=== PATIENT | female | born 1990 | race Caucasian/White ===

== ENCOUNTER 2024-03-31 18:59 | Inpatient (IN) | payer OTHER, SELFPAY ==
[2024-03-31] VITALS (14 sets, daily range): BP systolic 120–146; BP diastolic 52–77; PULSE 68–92; O2SAT 98–99
--- NOTE | 2024-03-31 20:13 | P.LDBA_ITS ---
Subjective History of Present Illness Narrative: Patient was admitted to Labor and Delivery for spontaneous onset of labor at term. This note is being written post due to the needs of the unit at the time of admission. She is a 33 year old at 41 1/7weeks gestation. She was a transfer patient at 40 3/7weeks gestation. Labor on Full H&P has not been done here at [facility]. Please see below. No Known Drug Allergies Allergy (Verified 03/26/24 14:07) Home Medications - Last Reconciled 03/26/24 by Kayla Reyes MA No Known Home Medications Medication reconciliation completed?: Yes Do you need a note to return to daycare/school/sports/work: No Accompanied by: Is last menstrual period known: No : 2 Para: 1 Health Care Directive Has patient completed a Health Care Directive: No Was information given to patient on how to complete a HCD?: No Functional & Cognitive Status Patient needs assist w/ADL's: No Patient appears alert: Yes Tobacco Measurement Smoking Status: Never smoker Exposure to secondhand smoke: No Electronic Cigarettes (Vaping) Vaping Status: Never vaped Exposure to secondhand e-cigarettes?: No PHQ-9 Depression screening performed: Yes Little interest or pleasure in doing things: not at all Feeling down, depressed, or hopeless: not at all Trouble falling or staying asleep, or sleeping too much: several days Feeling tired or having little energy: more than half the days Poor appetite or overeating: not at all Feeling bad about yourself - or that you are a failure or have let yourself or your family down: not at all Trouble concentrating on things, such as reading the newspaper or watching television: not at all Moving or speaking so slowly that other people could have noticed. Or the opposite - being so fidgety or restless that you have been moving around a lot more than usual: not at all Thoughts that you would be better off or of hurting yourself in some way: not at all PHQ-9: Total score: 3 If you checked off any problems, how difficult have those problems made it for you to do your work, take care of things at home, or get along with other people ?: not difficult at all 0-4 None-Minimal, 5-9 Mild, 10-14 Moderate, 15-19 Moderately Severe, 20-27 Severe Source: Developed by Drs. Cruz Rinaldi, Luna Calderon, Bird Preciado and colleagues, with an educational federica from [employer]. PHQ9 Negative Result: negative Illicit Drugs In the last 18 months, have you used illicit drugs or medication not prescribed to you?: No PFSH Active Problems (Updated 03/26/24 @ 19:02 by Josefa Her CNM) (Acute) ?Z34.90 - Encounter for supervision of normal , unspecified, unspecified trimester (ICD-10)Hx of endometriosis (Acute) ?Z87.42 - Personal history of other diseases of the female genital tract (ICD- 10) Medical History (Updated 03/26/24 @ 19:02 by Josefa Her CNM) Anemia affecting ?O99.019 - Anemia complicating , unspecified trimester (ICD-10)Oral mucocele ?K13.79 - Other lesions of oral mucosa (ICD-10)Vaginal delivery ?O80 - Encounter for full-term uncomplicated delivery (ICD-10) Surgical History (Updated 03/26/24 @ 18:59 by Josefa Her CNM) [place] teeth extracted ?K08.409 - Partial loss of teeth, unspecified cause, unspecified class (ICD- 10)Status post laparoscopic surgery ?Z98.890 - Other specified postprocedural states (ICD-10) Family History (Updated 03/26/24 @ 14:39 by Josefa Her CNM) Aunt Ovarian cancer Social History (Updated 03/26/24 @ 14:08 by Kayla Reyes MA) What is your current living situation?: I presently have a place to live Problems where you live: no known problems In the past 12 months, utilities in danger of being shut off: no In past 12 months, lack of transportation kept you from medical appts, meetings, work, or getting things needed for daily living: no In the past 12 mos, have been you worried that your food would run out before you had money to buy more?: never true In the past 12 mos, the food you bought just didn't last and you didn't have money to buy more?: never true How often does anyone, including family, friends and others, physically hurt you : never How often does anyone, including family, friends and others, insult or talk down to you: never How often does anyone, including family, friends and others, threaten you with harm: never How often does anyone, including family, friends and others, scream or curse at you: never Little interest or pleasure in doing things: not at all Feeling down, depressed, or hopeless: not at all Reproductive Health History Date of last pap smear: 2021 NIL History of abnormal pap smear: No : 2 Para: 1 Hx # Term Pregnancies: 1 History of multiple gestations: No Number of Living Children: 1 History of pregnancies: No History of ectopic pregnancies: No History of sexually transmitted diseases: No Treatment for infertility: No History History 2 Elective abortions Para 1 Spontaneous abortions Hx # Term Pregnancies Ectopic pregnancies Hx # Pregnancies Multiple births Number of Living Children 1 OB Labs: ? Blood type: O+, antibody screen negative. ? Hgb: 10.3 Platelets: 235 ? Rubella: Immune ? Varicella: Immune TP: non-reactive ? HBsAg: non-reactive ? Hep C: negative HIV: negative ? UC: negative GC/Chlamydia: negative/negative ? Pap (09/2021): negative ?note only, not actual lab report in records Genetic screening: declined 1hr gtt: 85 ? GBS: negative 3rd trimester hgb: 10.4 ? IMAGING: ? 1st trimester: 1. Graham, viable intrauterine 2. Ultrasound EDC is 04/10/24 with a gestational age on 7 weeks 4 days. (of note this appears to be a typo as earlier in this report EDC is noted as 03/23/24) 3. No adnexal masses seen 4. a 2.2 X 1.5 X 0.4 cm subchorionic hematoma is noted. Follow up is no required unless clinically indicated. Ernestine Mares, DO 08/09/2023 ? Anatomy scan: 1. Single living intrauterine in a transverse presentation. 2. Ultrasound determined gestational age is 21 weeks 6 days. 3. STEVE by ultrasound is 03/20/24 4. There are no gross abnormalities. ?Others: 1. Graham viable intrauterine 2. Ultrasound EDC is 03/25/24 with a gestational age if 9 weeks 3 days. 3. No adnexal masses are seen Zuleima Marroquin, DO 08/24/23 Specific Issues/Plans [place] working with a associate director of sales Tx visit at 40.3 wks from [facility] #elevated BP at Tx Visit, with normal recheck 144/88 OB Labs: ? Blood type: O+, antibody screen negative. ? Hgb: 10.3 Platelets: 235 ? Rubella: Immune ? Varicella: Immune TP: non-reactive ? HBsAg: non-reactive ? Hep C: negative HIV: negative ? UC: negative GC/Chlamydia: negative/negative ? Pap (09/2021): negative ?note only, not actual lab report in records Genetic screening: declined 1hr gtt: 85 ? GBS: negative 3rd trimester hgb: 10.4 ? IMAGING: ? 1st trimester: 1. Graham, viable intrauterine 2. Ultrasound EDC is 04/10/24 with a gestational age on 7 weeks 4 days. (of note this appears to be a typo as earlier in this report EDC is noted as 03/23/24) 3. No adnexal masses seen 4. a 2.2 X 1.5 X 0.4 cm subchorionic hematoma is noted. Follow up is no required unless clinically indicated. Ernestine Mares, DO 08/09/2023 ? Anatomy scan: 1. Single living intrauterine in a transverse presentation. 2. Ultrasound determined gestational age is 21 weeks 6 days. 3. STEVE by ultrasound is 03/20/24 4. There are no gross abnormalities. ?Others: 1. Graham viable intrauterine 2. Ultrasound EDC is 03/25/24 with a gestational age if 9 weeks 3 days. 3. No adnexal masses are seen Zuleima Marroquin, DO 08/24/23 OB Exam Physical Exam Vital signs: Pulse BP Pulse Ox 79 143/67 H 99 03/31/24 20:00 03/31/24 20:00 03/31/24 18:55
[2024-03-31] MEDS: IBUPROFEN 600 MG TABLET PO (20:35)
[2024-03-31 21:40] LABS: Hematocrit 34.6 % (33.0-51.0); Mean Corpuscular HGB Conc 32 gm/dL (32-36); Mean Corpuscular Hemoglobin 29 pg (26-34); Mean Corpuscular Volume 93 fL (80-100); Platelet Count* 164 K/uL (140-440); Red Blood Count 3.74 m/uL (4.00-5.20); White Blood Count* 9.88 K/uL (4.50-11.00)
--- NOTE | 2024-03-31 21:43 | W.PM.OBVAGDE ---
OB Procedure Vag Delivery Mother Details Mother Details: The patient is a 33 year-old, 2, now Para 2, admitted on 03/31/24 at 41w1d gestation. Patient was admitted for spontaneous onset of labor and progressed normally. SROM noted at 1929 with clear fluid. Patient was complete at 1929 and pushing at 1929 spontaneously. of a viable male at 1935 in hands and knees in the tub. Vertex delivered OA. No nuchal cord or shoulder. Body delivered easily and without incident. Infant passed to mothers hands and brought up out of the water with an immediate vigorous cry. Cord was clamped and cut at > 5 minutes. APGARS were 8 at one minute and 9 at five minutes respectively. Intact placenta with a 3 vessel cord delivered spontaneously at 1944 with marginal cord insertion noted. Fundus firm. 2nd degree identified and repaired in typical fashion. QBL 560 cc. Mother and baby stable; mother plans to breastfeed. Infant weight pending.? Additional Details Amniotic Membrane Status: SROM Amniotic Membrane Rupture Date: 03/31/24 Amniotic Membrane Rupture Time: 19:29 Amniotic Membrane Fluid Description: Clear Analgesia/Anesthesia Type: Local Waterbirth: Yes Pitcoin: No Intrapartal Events: None Labor Onset: 00:30 Complete: 19:29 Pushin:29 Heart: heart tones during second stage were normal baseline via doppler check x 1 in second stage. Delivery Details Delivery Date: 03/31/24 Delivery Time: 19:35 Route of delivery: Gender: Male Infant Viability: Alive; Heart Rate Present Position at Delivery: OA Delivery Details: Delivered over second degree laceration via spontaneous vaginal delivery. Baby guided out and delivered to his mother's hands. Head then lifted first out of water with immediate cry. was placed on maternal abdomen.?Vaginal gush of blood within one minute of prompted exit from the tub. Time was not taken to clamp and cut the cord prior to exit due to wanting to exit quickly. One nurse supported the baby completely in her mothers arms. 2 others supported mother safely out of the tub. Cord was clamped and cut after a 5+minute delay, after the placenta had been delivered. Infant weight pending. 1 Minute Interval Total Score: 8 5 Minute Interval Total Score: 9 Additional Details Shoulder Dystocia: No Placenta Delivery Time: 19:42 Placental Delivery Description: Spontaneous (marginal cord insertion noted.) Delivery repair: Vicryl Procedure Done: Global Blood Loss: 560 Laceration: Perineal - 2nd Degree Episiotomy Description: None Blood Loss Measurement Type: QBL Bakri Used: No Sponge/Need Count Correct: Yes Cord Vessel Description: 3 Vessels Event Summary Status: Mother and were stable after delivery.
[2024-03-31 21:45] LABS: Slide Review Reflex No
[2024-03-31 21:46] LABS: Alanine Aminotransferase* 10 U/L (4-35); Aspartate Amino Transferase* 26 U/L (12-35); Blood Urea Nitrogen* 14 mg/dL (5-24); Creatinine* 0.6 mg/dL (0.5-1.5); Estimated Glomerular Filt Rate 122 ml/min
[2024-04-01 01:57] VITALS: BP 110/68; PULSE 76; RESP 16; O2SAT 95
[2024-04-01] MEDS: ACETAMINOPHEN 500 MG TABLET 1000 MG PO ×4 (02:00→22:22)
[2024-04-01 05:41] VITALS: BP 106/66; PULSE 75; RESP 16; TEMP 37.2; O2SAT 97
[2024-04-01] MEDS: IBUPROFEN 600 MG TABLET PO ×3 (05:47→19:27)
--- NOTE | 2024-04-01 07:55 | PM.OBDSVD1 ---
DS: Providers Provider Date Seen: 04/01/24 Date of admission: 03/31/24 18:59 Primary care physician: Not a Local Provider Admitting Clinician: Malena Sherman CNM Attending Physician on discharge: Malena Sherman CNM Date of Discharge: 04/01/24 DS: Diagnosis Discharge Diagnosis (1) Lactating mother: Status: Acute (2) care following vaginal delivery: Status: Acute Exam Narrative: Exam Narrative: GENERAL APPEARANCE:? normal affect, alert, no distress? MOOD:? appropriate? CHEST:? clear to auscultation and percussion? HEART:? regular rate and rhythm? ABDOMEN:? soft, non-tender the uterine fundus is U/2 and is appropriate for the stage of recovery. PERINEUM:? mild edema of the perineum, there is a 2nd degree laceration that is healing well.? EXTREMITIES:? normal and no edema? Const: Vital Signs, click to edit/add: Vital Signs - 24 hr 03/31/24 18:40 03/31/24 18:45 03/31/24 18:46 Temperature Pulse Rate 83 Pulse Rate [Pulse Oximeter] Respiratory Rate Blood Pressure 135/77 Blood Pressure [Le ft Arm] Pulse Oximetry 99 [facility] 18:50 03/31/24 18:55 03/31/24 19:45 Temperature Pulse Rate 85 Pulse Rate [Pulse Oximeter] Respiratory Rate Blood Pressure 143/63 H Blood Pressure [Le ft Arm] Pulse Oximetry 99 99 [facility] 03/31/24 20:00 03/31/24 20:15 03/31/24 20:30 Temperature Pulse Rate 79 82 73 Pulse Rate [Pulse Oximeter] Respiratory Rate Blood Pressure 143/67 H 146/63 H 131/60 Blood Pressure [Le ft Arm] Pulse Oximetry [facility] 03/31/24 20:45 03/31/24 21:00 03/31/24 21:15 Temperature Pulse Rate 69 72 68 Pulse Rate [Pulse Oximeter] Respiratory Rate Blood Pressure 132/61 128/52 L 139/65 Blood Pressure [Le ft Arm] Pulse Oximetry Oxygen Delivery [facility] thod 03/31/24 21:30 03/31/24 21:45 04/01/24 01:57 Temperature Pulse Rate 81 85 Pulse Rate [Pulse Oximeter] 76 Respiratory Rate 16 Blood Pressure 125/58 L 120/58 L Blood Pressure [Le ft Arm] 110/68 Pulse Oximetry 95 Oxygen Delivery Me thod 04/01/24 05:41 Temperature 98.9 F Pulse Rate Pulse Rate [Pulse Oximeter] 75 Respiratory Rate 16 Blood Pressure Blood Pressure [Le ft Arm] 106/66 Pulse Oximetry 97 Oxygen Delivery Me thod Room Air OB - DS: Summary Hospital Course Hospital Course: Jeaneth is a 33 year old G 2 P 2 at 41.1 weeks gestation that was admitted to the Center on 03/31/24 for labor. She had an uncomplicated vaginal delivery. She delivered a viable male infant. She is breast feeding and is working on the latch but denies concerns. the patient has done well. Her pain is well controlled with current medications.? She has no new complaints.? Urinary output is adequate and she is voiding without difficulty.? Has a good appetite, is tolerating a general diet, is passing flatus, and has not had a bowel movement.? Has scant amount of rubra lochia.? She is ambulating well. She is planning NFP and condoms for contraception. She likely wants to discharge after 24 hours but is uncertain. will plan for discharge but encouraged her to stay with any concerns or if she desires. Peripartum Data delivery method: Vaginal Laceration description: Perineal - 2nd Degree complications: none Infant Gender: Male Infant Discharge Plan: Home Status at Discharge Functional status at discharge: independent ambulation Overall status at discharge: patient is progressing back to baseline Time Spent with Patient Time attestation: Total time spent providing and/or coordinating discharge services: Discharge Plan Discharge Disposition: Home, Self-Care Date of Admission: 03/31/24 18:59 Attending Provider on Discharge: Emely Fisher Primary Care Provider: Provider,Not a Local Condition: Stable Anticipated Discharge Date/Time: 04/01/24 21:00 Discharge Medications: New docusate sodium 100 mg Capsule 100 mg PO DAILY Qty: 90 0RF Rx Instructions: Take 1-2 tablets daily as needed for constipation. ibuprofen 600 mg Tablet 600 mg PO Q6H PRNQty: 30 0RF No Action No Known Home Medications Discharge Orders: Discharge Order (Routine); Ordered 04/01/24 Ordered By: Emely Fisher Patient Education: OB Vaginal/Breast Feeding Additional Instructions: Discharge instructions were reviewed with the patient including signs and symptoms of infection and home going medications.? Lifting Restrictions: 20 pounds for 6? weeks? ?? Do not drive while taking narcotic pain meds.? Off Work or School for 6 weeks.? ?? Symptoms to report to doctor:? -Bleeding that saturates more than one pad per hour? -Passing clots larger than the size of a golf ball? -Pain not relieved by prescribed medication? -Fever above 100.4 degrees Fahrenheit? -A foul vaginal odor? -Difficulty in emotions, mood and functions? -Thoughts of hurting yourself and/or ? -Painful, reddened area in your breast? -Any drainage, redness or tenderness in your IV/epidural site? -Severe headache that doesn't improve after taking medications? -Changes in vision, including temporary loss of vision, blurred vision, and/or light sensitivity? -Upper abdominal pain (usually under ribs on the right side)? -Decrease in urination or painful, frequent urinating? -Chest pain? -Shortness of breath? -Tenderness or pain with redness and/swelling in the calf(s) of your leg? ?? Follow Up in clinic in 2 and 6 weeks.? ?? consultation services are available to all mothers and babies for the first year after delivery.? To make an appointment, please call [phone].? Activity Level: Activity as Tolerated Discharge Diet: Regular Follow Up Appointments: [facility] [Provider Group] Provider,Not a Local [Primary Care Provider] - Forms: [employer] Info Instructions
[2024-04-01] MEDS: DOCUSATE SODIUM 100 MG CAPSULE PO (08:04)
[2024-04-01 08:05] VITALS: BP 119/76; PULSE 78; RESP 18; TEMP 37.1; O2SAT 97
[2024-04-01 12:03] VITALS: BP 110/72; PULSE 80; RESP 18; TEMP 37; O2SAT 97
[2024-04-01 16:11] VITALS: BP 124/82; PULSE 87; RESP 18; TEMP 36.7; O2SAT 96
[2024-04-01 19:46] VITALS: BP 116/72; PULSE 82; RESP 16; TEMP 37; O2SAT 96
[2024-04-01 21:06] LABS: Hemoglobin* 9.9 gm/dL (12.0-16.0)
[2024-04-02 00:43] VITALS: BP 112/72; PULSE 66; RESP 16; TEMP 36.9; O2SAT 97
[2024-04-02] MEDS: IBUPROFEN 600 MG TABLET PO ×3 (01:09→16:36)
[2024-04-02] MEDS: ACETAMINOPHEN 500 MG TABLET 1000 MG PO (03:41)
--- NOTE | 2024-04-02 07:43 | P.DS_ITS ---
DS: Providers Provider Date Seen: 04/02/24 Date of admission: 03/31/24 18:59 Primary care physician: Not a Local Provider Admitting Clinician: Malena Sherman CNM Attending Physician on discharge: Mercedes Cox CNM DS: Diagnosis Discharge Diagnosis (1) Lactating mother: Status: Acute (2) care following vaginal delivery: Status: Acute (3) Anemia due to acute blood loss: Status: Acute Exam Narrative: Exam Narrative: GENERAL APPEARANCE:? normal affect, alert, no distress MOOD:? appropriate CHEST:? clear to auscultation HEART:? regular rate and rhythm ABDOMEN:? soft, non-tender the uterine fundus is At Umbilicus, Midline and is appropriate for the stage of recovery. PERINEUM:? mild edema of the perineum, there is a Perineal Laceration,?2nd degree, that is healing well. EXTREMITIES:? normal and no edema Const: Vital Signs, click to edit/add: Vital Signs - 24 hr 04/01/24 08:05 04/01/24 12:03 04/01/24 16:11 Temperature 98.7 F 98.6 F 98.0 F Pulse Rate [Pulse Oximeter] 78 80 87 Respiratory Rate 18 18 18 Blood Pressure [Le ft Arm] 119/76 110/72 124/82 Pulse Oximetry 97 97 96 Oxygen Delivery Me thod Room Air Room Air Room Air 04/01/24 19:46 04/02/24 00:43 Temperature 98.6 F 98.4 F Pulse Rate [Pulse Oximeter] 82 66 Respiratory Rate 16 16 Blood Pressure [Le ft Arm] 116/72 112/72 Pulse Oximetry 96 97 Oxygen Delivery Me thod Room Air Room Air Documenting provider has reviewed patient's vital signs: yes OB - DS: Summary Hospital Course Hospital Course: Jeaneth is a 33 y.o. G 2 P 2 who was admitted to [facility] for spontaneous onset of labor. ?She had a NVD that was complicated by increased bleeding. The patient feels well. ?The pain is well controlled with current medications. ?She has no new complaints. ?She is breast feeding and reports things are going well. the patient has done well.? Vitals have been stable.? She has remained afebrile.? Has a good appetite, is tolerating a general diet. ?She is voiding without difficulty.? She is passing gas and has not had a bowel movement.? She is ambulating and denies any dizziness.? Has small amount of rubra lochia. She decided to stay last night and not discharge home then due to needing echo this morning after failing the CCHD 3 times. Problems: Anemia plan: Discharge home with baby. Follow up in 2 weeks and 6 weeks. , may see if needed Hgb 9.9. Declines iron supplement. Peripartum Data delivery method: Vaginal complications: none Gender: Male Discharge Plan: Home Status at Discharge Functional status at discharge: independent ambulation Overall status at discharge: patient is progressing back to baseline Time Spent with Patient Time attestation: Total time spent providing and/or coordinating discharge services: Discharge Plan Discharge Disposition: Home, Self-Care Date of Admission: 03/31/24 18:59 Attending Provider on Discharge: Mercedes Cox Primary Care Provider: Provider,Not a Local Condition: Stable Anticipated Discharge Date/Time: 04/01/24 21:00 Discharge Medications: New docusate sodium 100 mg Capsule 100 mg PO DAILY Qty: 90 0RF Rx Instructions: Take 1-2 tablets daily as needed for constipation. ibuprofen 600 mg Tablet 600 mg PO Q6H PRNQty: 30 0RF No Action DHA 200 mg capsule 200 mg PO DAILY Patient Comments: Unknown what mg she was taking at home Discharge Orders: Discharge Order (Routine); Ordered 04/01/24 Ordered By: Emely Fisher Patient Education: OB Vaginal/Breast Feeding, OB Over the Counter Medication Information Additional Instructions: Discharge instructions were reviewed with the patient including signs and symptoms of infection and home going medications Nothing vaginally for 6 weeks: no tampons or intercourse Off Work or School for 6 weeks 2-week visit: discuss infant feeding concerns, review control options and screen for anxiety/depression. 6-week visit for an annual exam. consultation services are available to all mothers and babies for the first year after delivery.? To make an appointment, please call [phone]. Activity Level: Activity as Tolerated Discharge Diet: Regular Follow Up Appointments: [facility] [Provider Group] Provider,Not a Local [Primary Care Provider] - Forms: [employer] Info Instructions
[2024-04-02] MEDS: DOCUSATE SODIUM 100 MG CAPSULE PO (08:28)
[2024-04-02 16:29] VITALS: BP 118/77; PULSE 92; RESP 19; TEMP 36.7; O2SAT 96
== END 2024-04-02 16:56 | disposition home or self-care (01) | DRG 806 ==
LOC: OB OUT 18:59 → OB 18:59
PROVIDERS: Advanced Practice Midwife; Admitting Provider Midwife; Visit Provider Midwife
DX: O48.0 Post-term pregnancy (principal); D62 Acute posthemorrhagic anemia; Z37.0 Single live birth; O70.1 Second degree perineal laceration during delivery; O90.81 Anemia of the puerperium; Z3A.41 41 weeks gestation of pregnancy
CPT/HCPCS: 36415; 82565; 84450; 84460; 84520; 85018; 85027; 86592; A9270

== ENCOUNTER 2024-10-18 11:10 | Outpatient (CLI) | payer BC, SELFPAY ==
--- NOTE | 2024-10-18 13:30 | P.LACCB_ITS ---
Consult Note - Mom Date of Visit Date of visit: 10/18/24 Reason for consultation: Other (pumping/adding bottles to feeding routine) Visit Code: Visit Patient's Information Phone number: [phone] Para: 2 Allergies No Known Drug Allergies Allergy (Verified 07/24/24 10:52) Mother's Medical History: Medical History (Updated 05/10/24 @ 15:15 by Malena Sherman CNM) Diastasis of rectus abdominis ?M62.08 - Separation of muscle (nontraumatic), other site (ICD-10) Hx of endometriosis ?Z87.42 - Personal history of other diseases of the female genital tract (ICD-10) Anemia affecting ?O99.019 - Anemia complicating , unspecified trimester (ICD-10) Oral mucocele ?K13.79 - Other lesions of oral mucosa (ICD-10) Vaginal delivery ?O80 - Encounter for full-term uncomplicated delivery (ICD-10) Delivery Information Gestational Weight For Age: AGA Weight: 4.18 kg Baby's Information Baby's Age at Visit: 6.5 months Baby's Provider or Clinic: [facility] Jaundice: No Past Experience Past Experience: Yes Current Frequency of Day Feedings: every 3 hours Frequency of Night Feedings: 3-8 hr stretches Both Breasts: Yes Suck: strong Latch: comfortable Length of Time: less than 10 minutes Goals: 1yr minimum,maybe 18 months Pumping Pumping: No Supplementing EBM Supplement: No Formula Supplement: No Baby Elimination Number of Wet Diapers a Day: 6 or more Number of BM a Day: 2-5 Breast/Nipple Condition Breast Shape: Round Engorgement: No Maternal Nipple Condition - Left: Common Nipple (measured at 16mm) Maternal Nipple Condition - Right: Common Nipple (measured at 16mm) Sore Nipples: No Baby Assessment Skin: Normal Tongue/frenulum: Normal/elastic Palate: Average Lips: Relaxed and Symmetrical Jaw Alignment: Symmetrical Mucosa: [place], moist Onsite Observation Pre-Feed weight: 8.162 kg Post-Feed weight: 8.224 kg Milk Transferred (mL): 62 Position: Cross cradle Attachment/latch-on achieved: Easily (but distracted) Suck pattern: Suck burst and normal rest Swallow: Audible, consistent Behavior following feed: Alert, content Pre-Nursing Left Nipple: Within Normal Limits Pre-Nursing Right Nipple: Within Normal Limits Post-Nursing Left Nipple: Within Normal Limits Post-Nursing Right Nipple: Within Normal Limits Assessments/Interventions Assessments/Interventions: Mom here to discuss what pumping and giving a bottle would look like; she breastfed her first chid for 17 months and he never took a bottle. He went from to cup feeding. Sav has only ever been breastfed and has had no bottles or cups thus far. He does not take a pacifier. She describes possibly wanting the option of a bottle once in awhile; does not want/expect it to be a regular thing. She has a [id number]-[employer]-Ncgy[employer] pump but has not used it; she also has a [employer] harmony pump that she used early on after he was born but not since. Discussion centered around pumping, pump usage/settings, when to pump, volume to pump, storage guidelines. Reviewed use of pump, pump settings, measured for flange size; she has a 24mm and 27mm but she would likely need an 18-20mm for comfort. Longer discussion around the potential challenge of getting Sav accustomed to a bottle at 6.5 months of age when he hasn't had one so far; option of going to sippy cup of some variety vs bottle reviewed Bottle/cup step by step introduction reviewed with mom. Education provided: Alternative feeding methods (SNS, cup, finger feeding, bottling) and Milk collection, storage Follow-Up Suggested follow up: Appointment as needed (encouraged mom to call with additional questions) Time Spent Time spent with patient (min): 60 Meds Home Medications and Allergies Allergies Allergy/AdvReac Type Severity Reaction Status Date / Time No Known Drug Allergies Allergy Verified 07/24/24 10:52
== END 2024-10-18 11:11 | disposition home or self-care (01) ==
PROVIDERS: Visit Provider Obstetrics & Gynecology
DX: Z39.1 Encounter for care and examination of lactating mother (principal)
CPT/HCPCS: G0463

== ENCOUNTER 2024-11-14 11:12 | Outpatient (CLI) | payer BC, SELFPAY ==
--- NOTE | 2024-11-14 11:58 | P.LACF_ITS ---
Follow-Up Note: Mom Date of visit Reason for consultation: Breast/Nipple Issue (bump behind R nipple, questioning plugged duct vs something else) Visit Code: Visit Patient's Information Allergies No Known Drug Allergies Allergy (Verified 07/24/24 10:52) Baby's Information Baby's name: aSv Baby's Age at Visit: 7.5 months Baby's Provider or Clinic: [facility] Current Frequency of Day Feedings: every 3-4 hours Frequency of Night Feedings: sleeps 12 hrs, wakes 1-2 times to feed Both Breasts: Yes Pumping Pumping: No Supplementing EBM Supplement: No Formula Supplement: No Breast/Nipple Assessment Breast/Nipple Assessment: Jeaneth has a small, round, palpable lump behind her right nipple, approx 4- 5mm in diameter. She noticed it about 6-7 days ago; hasn't gotten worse since then but also not better. Toro Ang is getting his top teeth and he did slightly bite her yesterday and this was quite painful; I asked if it's possible if the lump developed after a bite last week and she states it is possible but she's not sure. She doesn't think it gets better with nursing as when she has had plugged ducts before. She has tried ibuprofen for pain, not sure if it helps or not but also states she hasn't been consistent with it. She took one dose of [place] Lecith[place] but then stopped as she read it can cause stomach upset for the baby. She tried an ice pack once or twice but didn't continue that either. Breast Shape: Round Maternal Nipple Condition - Left: Common Nipple Maternal Nipple Condition - Right: Common Nipple Assessments/Interventions Assessments/Interventions: Jeaneth has a small, round, palpable lump behind her right nipple, approx 4- 5mm in diameter. No open wound or redness to the skin. Baby Sav nursed in the cross cradle positionfor about 10 minutes; there was no appreciable change in size of the lump noted after nursing. Sav does pull on mom's breast quite a bit when nursing; encouraged her to pull him in closer to her to prevent pulling on her breast as well as trauma to the area in question. Mom is able to do this and does report it hurts less when she has him on deeper and held in closer for feeding. Suggested the following treatment options: Warm pack for 5-10 min prior to nursing for comfort Breastfeed with a deeper latch and hold baby close to prevent pulling on breast Ice pack for 5-10 min after nursing Ibuprofen 400mg every 6 hours or 600mg every 8 hours for pain and swelling Return to [facility] if no improvement in 4-5 days, or immediately if worsening in pain or increase in size, for further evaluation and possible ultrasound. Mom verbalizes she has the needed number to call the [facility] if needed. Dr. Sasha Maya was on the Center so reviewed the scenario with her. She agreed with the above plan of care and when to return to seek additional evaluation. Follow-Up Suggested follow up: Appointment as needed Time Spent Time spent with patient (min): 45 Meds Home Medications and Allergies Allergies Allergy/AdvReac Type Severity Reaction Status Date / Time No Known Drug Allergies Allergy Verified 07/24/24 10:52
== END 2024-11-14 11:13 | disposition home or self-care (01) ==
LOC: OB LAC 11:13
PROVIDERS: Visit Provider Obstetrics & Gynecology
DX: Z39.1 Encounter for care and examination of lactating mother (principal)
CPT/HCPCS: G0463

== ENCOUNTER 2025-05-19 16:20 | Outpatient (CLI) | payer BC, SELFPAY | END 2025-05-19 16:21 | disposition home or self-care (01) | LOC: NFLDREF 05-23 15:56 | PROVIDERS: Visit Provider Advanced Practice Midwife | DX: Z34.91 Encounter for supervision of normal pregnancy, unspecified, first trimester (principal) | CPT/HCPCS: 84702 ==

== ENCOUNTER 2025-05-21 16:09 | Outpatient (CLI) | payer BC, SELFPAY | END 2025-05-21 16:10 | disposition home or self-care (01) | LOC: NFLDREF 05-26 15:57 | PROVIDERS: Visit Provider Advanced Practice Midwife | DX: O26.891 Other specified pregnancy related conditions, first trimester (principal); R10.9 Unspecified abdominal pain | CPT/HCPCS: 84702 ==

== ENCOUNTER 2025-06-02 12:44 | Outpatient (CLI) | payer BC, SELFPAY ==
--- NOTE | 2025-06-02 13:00 | CRLHL7_ITS ---
For Patients: As a result of the Cures Act, medical imaging exams and procedure reports are released immediately into your electronic medical record. You may view this report before your referring provider. If you have questions, please contact your health care provider. LMP: 04/12/2025. STEVE by LMP: 01/17/2026. GA: 7w, 2d. INDICATION: Dating. CRL: 1.2 cm 7w 3d. STEVE 01/16/2026. FHR: 152 bpm. GESTATIONAL SAC: 2.2 cm, appears within normal limits. YOLK SAC: 3.8 mm, appears within normal limits. RIGHT OVARY: Within normal limits, 3.5 x 2.3 x 2.6 cm. CL. LEFT OVARY: Within normal limits, 2.8 x 1.2 x 2.2 cm. IMPRESSION: Single living intrauterine measures 7 weeks 3 days with a sonographic due date 01/16/2026. Piero Richardson M.D. Diagnostic Radiologist [email or web address] bM/Dictated by: Piero Richardson MD @ 06/02/2025 3:56:00 PM (Electronically Signed)
== END 2025-06-02 12:45 | disposition home or self-care (01) ==
LOC: US 12:46
PROVIDERS: PCP Student in an Organized Health Care Education/Training Program; Visit Provider Midwife
DX: Z34.91 Encounter for supervision of normal pregnancy, unspecified, first trimester (principal); Z3A.01 Less than 8 weeks gestation of pregnancy
CPT/HCPCS: 76817; 82728; 83021; 86703; 86706; 86803; 86850; 86900; 86901; 87086; 87340; 87491; 87591

== ENCOUNTER 2025-06-02 14:06 | Outpatient (CLI) | payer BC, SELFPAY ==
[2025-06-02 21:10] LABS: Chlamydia DNA Amplified* NOT DETECTED (No Detected); GC DNA Amplified* NOT DETECTED (No Detected)
== END 2025-06-02 14:07 | disposition home or self-care (01) ==
PROVIDERS: PCP Student in an Organized Health Care Education/Training Program; Visit Provider Physician Assistant
DX: Z34.91 Encounter for supervision of normal pregnancy, unspecified, first trimester (principal); D64.9 Anemia, unspecified
CPT/HCPCS: 82728; 83020; 83021; 85660; 86592; 86703; 86704; 86706; 86762; 86787; 86803; 86850; 86900; 86901; 87086; 87340; 87491; 87591

== ENCOUNTER 2025-09-02 13:43 | Outpatient (CLI) | payer BC, SELFPAY ==
--- NOTE | 2025-09-02 14:00 | CRLHL7_ITS ---
For Patients: As a result of the Century Cures Act, medical imaging exams and procedure reports are released immediately into your electronic medical record. You may view this report before your referring provider. If you have questions, please contact your health care provider. OBSTETRICAL ULTRASOUND ??? ANATOMY SURVEY, 09/02/2025 INDICATION: Basic anatomy survey. STEVE by LMP: 01/17/2026 GESTATIONAL AGE: 20 weeks 3 days TECHNIQUE: Real-time rodriguez-scale imaging of the fetus was performed transabdominal. FINDINGS: position: Breech. Cervix: Visualized Technique: Transabdominal Length of closed cervix: 4.1 cm Placenta position: Anterior. Technique: Transabdominal Placenta tip to internal os: 10.2 cm Umbilical cord: 3-vessel cord Placental insertion: Central Amniotic fluid: 6.6 cm SDP (greater than/equal to 2 to less than 8 cm) ANATOMY SURVEY: Observed Structures Cerebellum: 2.1 cm, 21 weeks 1 day Cisterna magna: 3 mm Nuchal fold: 3.1 mm Lateral ventricle: 6 mm CSP: Yes Midline falx: Yes Choroid plexus: Yes Spine: Yes Stomach: Yes Abdominal cord insert: Yes Urinary bladder: Yes Kidneys: Yes Diaphragm: Yes Nose/lips: Yes Orbital view: Yes Profile: Yes Upper extremities: Yes Lower extremities: Yes Hands: Yes Feet: Yes 4-chamber heart: Yes LVOT: Yes RVOT: Yes 3VV: Yes 3VTV: Yes BIOMETRY BPD: 4.9 cm, 20 weeks 6 days, 70th percentile. HC: 17.7 cm, 20 weeks 1 day, 30th percentile. AC: 16 cm, 21 weeks 1 day, 66th percentile. FL: 3.6 cm, 21 weeks 2 days, 71st percentile. FL/AC: 22.31% HC/AC ratio: 1.11 heart rate: 150 bpm age by this ultrasound: 20 weeks 6 days STEVE by this ultrasound: 01/14/2026. Estimated weight: 396 grams (0 pounds 14 ounces) Percentile by STEVE: 79th percentile. IMPRESSION: 1) Concordance of clinical and sonographic dating. 2) Normal anatomic survey. PIERO LINDO M.D. [email or web address] DW/Dictated by: Piero Lindo MD @ 09/06/2025 10:35:00 PM (Electronically Signed)
== END 2025-09-02 13:44 | disposition home or self-care (01) ==
LOC: US 13:43
PROVIDERS: PCP Student in an Organized Health Care Education/Training Program; Visit Provider Advanced Practice Midwife
DX: O26.812 Pregnancy related exhaustion and fatigue, second trimester (principal); Z3A.20 20 weeks gestation of pregnancy
CPT/HCPCS: 76805

== ENCOUNTER 2025-09-02 15:40 | Outpatient (CLI) | payer BC, SELFPAY | END 2025-09-02 15:41 | disposition home or self-care (01) | LOC: NFLDREF 09-08 08:30 | PROVIDERS: PCP Student in an Organized Health Care Education/Training Program; Referring Provider Student in an Organized Health Care Education/Training Program; Visit Provider Advanced Practice Midwife | DX: O26.812 Pregnancy related exhaustion and fatigue, second trimester (principal); Z3A.20 20 weeks gestation of pregnancy | CPT/HCPCS: 82728 ==